=== PATIENT | male | born 1960 | race Caucasian/White ===

== ENCOUNTER 2022-08-06 06:42 | Day surgery (SDC) | payer OTHER, MEDICARE ==
[2022-08-06 07:20] VITALS: BMI 25.2
[2022-08-06] MEDS ORDERED: ROCURONIUM BROMIDE 50 MG/5 ML SYRINGE ONE ×2 (07:39→08:46)
[2022-08-06] MEDS ORDERED: PROPOFOL 40 ML ONE (07:39)
[2022-08-06] MEDS ORDERED: MIDAZOLAM HCL 2 MG/2 ML SINGLE DOSE VIAL ONE (07:39)
[2022-08-06] MEDS ORDERED: SUCCINYLCHOLINE CHLORIDE 200 MG/10 ML SYRINGE ONE (07:39)
[2022-08-06] MEDS ORDERED: BUPIVACAINE HCL/PF 2.5 MG/ML - 30 ML VIAL IJ ONE ×2 (07:51→09:57)
[2022-08-06] MEDS ORDERED: ceFAZolin SODIUM 1 GM VIAL ONE (08:10)
[2022-08-06] MEDS ORDERED: DEXAMETHASONE SOD PHOSPHATE 4 MG/1 ML VIAL ONE (08:14)
[2022-08-06] MEDS ORDERED: ONDANSETRON 4 MG/2 ML VIAL ONE (08:14)
[2022-08-06] MEDS ORDERED: HYDROmorphone HCL/PF 1 MG/ML VIAL ONE ×2 (08:14→09:01)
[2022-08-06] MEDS ORDERED: PROPOFOL 20 ML ONE (09:30)
[2022-08-06] MEDS ORDERED: GUM MASTIC/STORAX/MSAL/ALCOHOL 1 DRP DROPSBTL MC ONE (11:13)
[2022-08-06] MEDS ORDERED: ONDANSETRON 4 MG/2 ML VIAL IVPUSH PRN ×2 (11:47→11:48)
[2022-08-06] MEDS ORDERED: oxyCODONE HCL 5 MG TABLET PO PRN ×3 (11:47→13:26)
[2022-08-06] MEDS ORDERED: LACTATED RINGERS SOLUTION 1,000 ML IV SCH (12:00)
[2022-08-06] MEDS ORDERED: FENTANYL CITRATE/PF 50 MCG/ML VIAL ONE ×4 (12:22→13:22)
[2022-08-06] MEDS ORDERED: oxyCODONE HCL 5 MG TABLET PO ONE (12:45)
[2022-08-06] MEDS ORDERED: ACETAMINOPHEN 1000 MG/100 ML BAG IVPB SCH (15:00)
[2022-08-06] MEDS: oxyCODONE HCL 5 MG TABLET PO PRN ×2 (16:18→20:03)
[2022-08-06 19:49] VITALS: RESP 18
[2022-08-06] MEDS: ACETAMINOPHEN 1000 MG/100 ML BAG IVPB SCH (21:20)
[2022-08-06] MEDS ORDERED: QUEtiapine FUMARATE 100 MG TABLET (FP) PO SCH (22:00)
[2022-08-07] MEDS: ACETAMINOPHEN 1000 MG/100 ML BAG IVPB SCH ×2 (02:30→08:55)
[2022-08-07] MEDS: oxyCODONE HCL 5 MG TABLET PO PRN ×2 (06:35→10:41)
[2022-08-07] MEDS: DEXTROSE 5%-0.45% SALINE 1,000 ML IV SCH ×2 (08:19→12:22)
[2022-08-07 09:49] VITALS: BP 107/48; PULSE 68; TEMP 98.4
[2022-08-07] MEDS ORDERED: [UNRECOGNIZED DRUG - OTHER] PO SCH (10:00)
[2022-08-07] MEDS ORDERED: D3 PO SCH (10:00)
[2022-08-07] MEDS ORDERED: CALCIUM CITRATE PO SCH (10:00)
[2022-08-07] MEDS ORDERED: MULTIVITAMINS (DAILY MVI) TABLET (FP) PO SCH (10:00)
[2022-08-07] MEDS ORDERED: MAGNESIUM PO SCH (10:00)
[2022-08-07] MEDS ORDERED: ESCITALOPRAM OXALATE 20 MG TABLET PO SCH (10:00)
== END 2022-08-07 13:15 | disposition home or self-care (01) ==
LOC: FASUSAT 06:42 → FASU 06:42 → FM/S 13:53 → FASUSAT 08-07 13:15
PROVIDERS: ATTEND Surgery Plastic and Reconstructive Surgery
PROC: 0HX7XZZ Transfer Abdomen Skin, External Approach (ICD-10-PCS; 2022-08-06)
PROC: 0JB80ZZ Excision of Abdomen Subcutaneous Tissue and Fascia, Open Approach (ICD-10-PCS; principal; 2022-08-06 08:23)
DX: E88.1 Lipodystrophy, not elsewhere classified (principal); L91.0 Hypertrophic scar; R63.4 Abnormal weight loss; Z68.25 Body mass index [BMI] 25.0-25.9, adult; L98.7 Excessive and redundant skin and subcutaneous tissue
CPT/HCPCS: 94760

== ENCOUNTER 2022-11-17 12:53 | Emergency (ER) | payer OTHER, MEDICARE ==
[2022-11-17 13:08] VITALS: BP 130/90; PULSE 65; RESP 18; TEMP 98; BMI 25.6
== END 2022-11-17 13:46 | disposition left against medical advice (07) ==
LOC: FER 12:53
DX: M79.642 Pain in left hand (principal)
CPT/HCPCS: 99281-25

== ENCOUNTER 2025-07-06 06:20 | Day surgery (SDC) | payer OTHER, MEDICARE ==
[2025-07-04 11:53] VITALS: BMI 32.5
[2025-07-06] MEDS ORDERED: BUPIVACAINE HCL/PF 0.25% (2.5MG/ML) 10 ML VIAL ONE (07:20)
[2025-07-06] MEDS ORDERED: LIDOCAINE HCL 2% (20ML MULTI-DOSE VIAL) ONE (07:21)
[2025-07-06] MEDS ORDERED: LIDOCAINE HCL 1%, 10 MG/ML (20ML VIAL) ONE (07:21)
[2025-07-06] MEDS ORDERED: PROPOFOL 20 ML ONE (07:32)
[2025-07-06] MEDS ORDERED: LIDOCAINE 1%/EPI 1:100000 (20 ML MULTI DOSE VIAL) ONE (07:33)
[2025-07-06] MEDS ORDERED: MIDAZOLAM HCL 2 MG/2 ML SINGLE DOSE VIAL ONE ×2 (07:33→07:44)
[2025-07-06] MEDS: LIDOCAINE 1%/EPI 1:100000 (20 ML MULTI DOSE VIAL) INF ONE (08:00)
[2025-07-06 08:46] VITALS: PULSE 61; RESP 16; TEMP 97.7
[2025-07-06 09:11] VITALS: BP 125/65
== END 2025-07-06 09:05 | disposition home or self-care (01) ==
LOC: FASU 06:20
PROVIDERS: ATTEND Orthopaedic Surgery Sports Medicine
PROC: 0LN80ZZ Release Left Hand Tendon, Open Approach (ICD-10-PCS; principal; 2025-07-06 08:00)
DX: M65.322 Trigger finger, left index finger (principal)